=== PATIENT | female | born 1970 | race Caucasian/White ===

== ENCOUNTER → 2018-12-01 15:01 | Outpatient (POV) | payer SELFPAY | PROVIDERS: Visit Provider Dermatology | DX: Z00.00 Encounter for general adult medical examination without abnormal findings (principal) ==

== ENCOUNTER → 2020-05-11 13:01 | Outpatient (CLI) | payer BC, SELFPAY ==
--- NOTE | 2020-05-11 13:12 | XR_ITS ---
PROCEDURE: XR FOOT WT BEARING RT 3V CLINICAL INDICATION: Right heel pain COMPARISON: No exams were available for comparison FINDINGS: No fracture or dislocation. No lytic or blastic change. There is normal mineralization. The joint spaces are well-preserved. No significant degenerative/arthritic changes. No erosive changes evident. Other findings:There is a small calcaneal spur. No bony erosive process is evident. Kager's fat pad is preserved. There is mild prominent posterior talar process with a lucency at its base which could be due to ununited ossification center or a nondisplaced fracture and may be better evaluated with CT if this is an area clinical concern IMPRESSION: Lucency at the base of a prominent posterior talar process which may only represent an ununited ossification center versus a nondisplaced fracture otherwise negative Dictated by: Edin Paniagua MD 05/11/2020 17:42 Edin Paniagua MD in [facility] 05/11/2020 17:42
== END ==
PROVIDERS: PCP Family Medicine; Visit Provider Podiatrist
DX: M72.2 Plantar fascial fibromatosis (principal)
CPT/HCPCS: 73630